=== PATIENT | female | born 1945 | race Caucasian/White ===

== ENCOUNTER 2016-08-21 20:58 | Emergency (ER) | payer MEDICARE ==
[~2016-08-21] VITALS: Ht 160 cm; Wt 60.0 kg
[~2016-08-21 20:58] MED LIST: ANTIVERT25 MG PO; AUGMENTIN500TAB PO; CITRACAL + D; CITRACAL200 MG OR; CITRACAL200 MG PO; COQ-10100 M1 PO; CRESTOR5 MG PO; ESTRACE VAG0.1 MG/GM VA; EYE VITAMIN PO; FISH OIL1000 MG PO; FLUARIX QUADRIV1 INJ IM; FORTEO750 MG/3 M SC; IRON325 MG PO; LOVASTATIN10 M1 PO; MULT VITAMI1 PO; PEPCID20 MG PO; PRESERVISION OR; PRESERVISION PO; RED YEAST XX; RED YEAST600 MG PO; VITAMIN C500 M1 OR; ZITHROMAX500 MG PO; ZOSTAVAX SC; [UNRECOGNIZED DRUG - CODE] PO; [UNRECOGNIZED DRUG - OTHER] PO
[2016-08-21] MEDS ORDERED: PRAVASTATIN SOD20 MG PO (22:00)
[2016-08-21] MEDS ORDERED: PROTONIX40 M2 PO (22:00)
[2016-08-21 23:14] VITALS: BP 170/72
== END 2016-08-21 23:19 | disposition home or self-care (01) ==
LOC: ED 20:58
DX: H57.8 Other specified disorders of eye and adnexa (principal)